=== PATIENT | female | born 1990 | race Caucasian/White ===

== ENCOUNTER 2016-10-24 00:20 | Emergency (ER) | payer SELFPAY ==
[~2016-10-24] VITALS: Ht 162.6 cm; Wt 68.9 kg
[2016-10-24 01:40] LABS: BASOPHIL % 0.5 % (0-2); PLATELET COUNT 161 x10^3mcL (130-400); RED CELL DISTRIBUTION WIDTH 12.9 % (11.5-14.5)
[2016-10-24 02:04] LABS: CALCIUM 8.4 mg/dL (8.5-10.1); CARBON DIOXIDE 29.1 mmol/L (21-32); CHLORIDE SERUM 105 mmol/L (98-107); CREATININE SERUM 0.7 mg/dL (0.6-1.0); GFR1 > 60 mL/min; GLUCOSE SERUM 121 mg/dL (74-106); POTASSIUM SERUM 3.2 mmol/L (3.5-5.1); SODIUM SERUM 141 mmol/L (136-145)
[2016-10-24 06:32] VITALS: BP 100/70
== END 2016-10-24 06:32 | disposition home or self-care (01) ==
LOC: ED 00:20
PROVIDERS: Emergency Medicine
DX: E87.6 Hypokalemia (principal); F15.10 Other stimulant abuse, uncomplicated; F11.10 Opioid abuse, uncomplicated
CPT/HCPCS: 36415; G0480